=== PATIENT | male | born 1970 | race African-American/Black ===

== ENCOUNTER 2016-05-22 13:08 | Inpatient (IN) | payer MEDICAID, OTHER ==
[~2016-05-22] VITALS: Ht 180.3 cm; Wt 77.0 kg
[2016-05-22 13:39] LABS: BASOPHILS % (AUTO) 0.8 % (0.0-2.0); EOSINOPHILS % (AUTO) 3.7 % (1.0-6.0); HEMOGLOBIN 12.1 g/dL (13.5-17.5); LYMPHOCYTES # (AUTO) 1.3 K/uL (1.0-4.8); LYMPHOCYTES % (AUTO) 32.7 % (22.0-44.0); MEAN CORPUSCULAR HEMOGLOBIN 28.8 pg (26.0-34.0); MEAN CORPUSCULAR HGB CONC 32.6 G/dL (31.0-37.0); MEAN CORPUSCULAR VOLUME 89 fL (80-100); MONOCYTES # (AUTO) 0.4 K/uL (0.1-1.0); MONOCYTES % (AUTO) 8.6 % (2.0-9.0); NEUTROPHILS # (AUTO) 2.2 K/uL (1.8-7.7); NEUTROPHILS % (AUTO) 54.2 % (40.0-70.0); PLATELET COUNT (AUTO) 377 K/uL (150-450); RED BLOOD CELL COUNT(AUTO) 4.18 MIL/uL (4.50-5.90); RED CELL DISTRIBUTION WIDTH 14.5 % (11.5-14.5); WHITE BLOOD COUNT (AUTO) 4.1 K/uL (4.5-11.0)
[2016-05-22] MEDS ORDERED: RISP.5 PO (13:41)
[2016-05-22 13:42] LABS: ANION GAP 6 mmol/L (8-16); CALCIUM, TOTAL 8.8 mg/dL (8.8-10.5); CARBON DIOXIDE 30 mmol/L (22-29); CHLORIDE 107 mmol/L (98-107); CREATININE 0.79 mg/dL (0.60-1.30); GLOMERULAR FILTR. RATE CALC > 60 mL/min (>60); POTASSIUM 3.6 mmol/L (3.5-5.1); SODIUM SERUM 143 mmol/L (136-145); UREA NITROGEN, BLOOD 13 mg/dL (7-18)
[2016-05-22 13:48] LABS: ALANINE AMINOTRANSFERASE 20 U/L (12-78); ALBUMIN 3.2 g/dL (3.4-5.0); ASPARTATE AMINOTRANSFERASE 15 U/L (15-37); BILIRUBIN,TOTAL 0.2 mg/dL (0.1-1.0); TOTAL PROTEIN, SERUM 7.7 g/dL (6.4-8.2)
[2016-05-22 16:52] LABS: GLUCOSE,POINT OF CARE 101 MG/DL (70-110)
[2016-05-22 17:33] VITALS: BP 139/92
[2016-05-22] MEDS: HALOPERIDOL 5 MG TABLET PO PRN (18:03)
[2016-05-22] MEDS: LORazepam 2 MG TABLET PO PRN (18:03)
[2016-05-23] MEDS ORDERED: PETROLATUM,WHITE 71 GM JELLY TP PRN (07:30)
[2016-05-23] MEDS ORDERED: ALBUTEROL SULFATE HFA 90 MCG/PUFF 8 GM INHALER IH PRN (07:30)
[2016-05-23] MEDS ORDERED: BENZOCAINE/MENTHOL LOZENGE [8 LOZENGES/PACKET] MM PRN (07:30)
[2016-05-23] MEDS ORDERED: CloNIDine HCL 0.1 MG TABLET PO PRN (07:30)
[2016-05-23] MEDS ORDERED: BACITRACIN 28.4 GM OINTMENT TP PRN (07:30)
[2016-05-23] MEDS ORDERED: LOPERAMIDE HCL 2 MG CAPSULE PO PRN (07:30)
[2016-05-23] MEDS ORDERED: ONDANSETRON HCL 4 MG TABLET PO PRN (07:30)
[2016-05-23] MEDS ORDERED: MAG HYDROX/AL HYDROX/SIMETH ES 30 ML SUSPENSION UDCUP PO PRN (07:30)
[2016-05-23] MEDS ORDERED: MAGNESIUM HYDROXIDE SUSPENSION 30 ML UDCUP PO PRN (07:30)
[2016-05-23 08:00] VITALS: BP 128/78
[2016-05-23] MEDS: NICOTINE 21 MG/24 HOUR PATCH TD SCH ×2 (09:00→10:09)
[2016-05-23] MEDS: HALOPERIDOL 5 MG TABLET PO PRN (16:32)
[2016-05-23] MEDS: LORazepam 2 MG TABLET PO PRN (16:32)
[2016-05-23 16:59] VITALS: BP 133/86
[2016-05-24] MEDS: NICOTINE 21 MG/24 HOUR PATCH TD SCH (08:56)
[2016-05-24 09:54] VITALS: BP 129/74
[2016-05-24 16:00] VITALS: BP 133/76
[2016-05-24] MEDS ORDERED: LORazepam 2 MG/ML VIAL IM ONE (16:00)
[2016-05-24] MEDS ORDERED: DiphenhydrAMINE HCL 50 MG/ML VIAL IM ONE (16:00)
[2016-05-24] MEDS ORDERED: HALOPERIDOL LACTATE 5 MG/ML VIAL IM ONE (16:00)
[2016-05-25 08:13] VITALS: BP 116/90
[2016-05-25] MEDS: NICOTINE 21 MG/24 HOUR PATCH TD SCH (09:36)
[2016-05-25] MEDS: HALOPERIDOL 5 MG TABLET PO PRN (13:23)
[2016-05-25] MEDS: LORazepam 2 MG TABLET PO PRN (13:23)
[2016-05-25 16:00] VITALS: BP 127/70
[2016-05-25] MEDS: RisperiDONE 1 MG TABLET PO SCH (18:01)
[2016-05-26] MEDS: RisperiDONE 1 MG TABLET PO SCH ×2 (08:22→16:12)
[2016-05-26] MEDS: NICOTINE 21 MG/24 HOUR PATCH TD SCH (08:23)
[2016-05-26] MEDS: LORazepam 2 MG TABLET PO PRN (09:01)
[2016-05-26] MEDS: IBUPROFEN 600 MG TABLET PO PRN ×2 (09:06→21:02)
[2016-05-26 10:06] VITALS: BP 120/80
[2016-05-26 17:03] VITALS: BP 128/83
[2016-05-26 21:00] VITALS: BP 130/88
[2016-05-27] MEDS: ACETAMINOPHEN 325 MG TABLET PO PRN ×3 (01:29→13:41)
[2016-05-27 01:30] VITALS: BP 125/78
[2016-05-27] MEDS: IBUPROFEN 600 MG TABLET PO PRN ×3 (03:19→20:54)
[2016-05-27] MEDS: LORazepam 2 MG TABLET PO PRN ×2 (03:38→08:43)
[2016-05-27 08:03] VITALS: BP 143/89
[2016-05-27] MEDS: NICOTINE 21 MG/24 HOUR PATCH TD SCH (08:41)
[2016-05-27] MEDS: HALOPERIDOL 5 MG TABLET PO PRN (08:43)
[2016-05-27 08:44] VITALS: BP 143/89
[2016-05-27] MEDS: RisperiDONE 1 MG TABLET PO SCH ×2 (08:44→16:45)
[2016-05-27] MEDS ORDERED: BENZOCAINE 20% 11.9 GM GEL TP PRN (13:30)
[2016-05-27] MEDS ORDERED: BENZOCAINE 10% 7 GM GEL TP PRN (14:15)
[2016-05-27 16:00] VITALS: BP 139/85
[2016-05-27] MEDS: AMOXICILLIN TRIHYDRATE 500 MG CAPSULE PO SCH (16:45)
[2016-05-27] MEDS: BENZOCAINE 10% 7 GM GEL TP PRN (18:28)
[2016-05-27 20:51] VITALS: BP 133/79
[2016-05-28 04:20] VITALS: BP 131/73
[2016-05-28] MEDS: BENZOCAINE 10% 7 GM GEL TP PRN ×2 (04:24→12:32)
[2016-05-28] MEDS: IBUPROFEN 600 MG TABLET PO PRN ×2 (04:31→08:02)
[2016-05-28] MEDS: ACETAMINOPHEN 325 MG TABLET PO PRN (06:20)
[2016-05-28] MEDS: HALOPERIDOL 5 MG TABLET PO PRN (06:32)
[2016-05-28] MEDS: LORazepam 2 MG TABLET PO PRN (06:32)
[2016-05-28] MEDS: NICOTINE 21 MG/24 HOUR PATCH TD SCH (08:02)
[2016-05-28] MEDS: RisperiDONE 1 MG TABLET PO SCH ×2 (08:02→18:06)
[2016-05-28 08:04] VITALS: BP 122/87
[2016-05-28] MEDS: AMOXICILLIN TRIHYDRATE 500 MG CAPSULE PO SCH ×3 (08:05→18:06)
[2016-05-28 16:06] VITALS: BP 125/79
[2016-05-29 08:00] VITALS: BP 135/71
[2016-05-29] MEDS: AMOXICILLIN TRIHYDRATE 500 MG CAPSULE PO SCH ×3 (08:37→16:30)
[2016-05-29] MEDS: RisperiDONE 1 MG TABLET PO SCH ×2 (08:37→16:30)
[2016-05-29] MEDS: NICOTINE 21 MG/24 HOUR PATCH TD SCH (08:38)
[2016-05-29] MEDS: HALOPERIDOL 5 MG TABLET PO PRN (08:39)
[2016-05-29] MEDS: LORazepam 2 MG TABLET PO PRN (08:39)
[2016-05-29 18:49] VITALS: BP 129/82
[2016-05-30 08:07] VITALS: BP 133/86
[2016-05-30] MEDS: AMOXICILLIN TRIHYDRATE 500 MG CAPSULE PO SCH ×3 (08:25→16:50)
[2016-05-30] MEDS: RisperiDONE 1 MG TABLET PO SCH ×2 (08:25→16:51)
[2016-05-30] MEDS: NICOTINE 21 MG/24 HOUR PATCH TD SCH (08:26)
[2016-05-30 16:58] VITALS: BP 146/86
[2016-05-30] MEDS: BENZOCAINE 10% 7 GM GEL TP PRN (22:47)
[2016-05-31 00:15] VITALS: BP 131/81
[2016-05-31] MEDS: IBUPROFEN 600 MG TABLET PO PRN ×2 (01:10→10:18)
[2016-05-31] MEDS: ZOLPIDEM TARTRATE 10 MG TABLET PO PRN (02:31)
[2016-05-31] MEDS: LORazepam 2 MG TABLET PO PRN ×2 (02:31→16:12)
[2016-05-31 08:34] VITALS: BP 137/78
[2016-05-31] MEDS: RisperiDONE 1 MG TABLET PO SCH ×2 (08:43→16:47)
[2016-05-31] MEDS: AMOXICILLIN TRIHYDRATE 500 MG CAPSULE PO SCH ×3 (08:43→16:47)
[2016-05-31] MEDS: NICOTINE 21 MG/24 HOUR PATCH TD SCH (09:00)
[2016-05-31] MEDS ORDERED: LORazepam 2 MG/ML VIAL ONE (17:19)
[2016-05-31] MEDS ORDERED: HALOPERIDOL LACTATE 5 MG/ML VIAL ONE (17:19)
[2016-05-31] MEDS ORDERED: DiphenhydrAMINE HCL 50 MG/ML VIAL ONE (17:19)
[2016-05-31] MEDS ORDERED: LORazepam 2 MG/ML VIAL IM ONE (17:30)
[2016-05-31] MEDS ORDERED: HALOPERIDOL LACTATE 5 MG/ML VIAL IM ONE (17:30)
[2016-05-31] MEDS ORDERED: DiphenhydrAMINE HCL 50 MG/ML VIAL IM ONE (17:30)
[2016-05-31 18:05] VITALS: BP 141/95
[2016-06-01 02:00] VITALS: BP 130/72
[2016-06-01] MEDS: ZOLPIDEM TARTRATE 10 MG TABLET PO PRN ×2 (02:04→20:21)
[2016-06-01] MEDS: AMOXICILLIN TRIHYDRATE 500 MG CAPSULE PO SCH ×3 (08:00→16:31)
[2016-06-01] MEDS: RisperiDONE 1 MG TABLET PO SCH (08:01)
[2016-06-01 08:25] VITALS: BP 133/79
[2016-06-01] MEDS: NICOTINE 21 MG/24 HOUR PATCH TD SCH (09:00)
[2016-06-01 16:00] VITALS: BP 126/85
[2016-06-01] MEDS: RisperiDONE 3 MG TABLET PO SCH (16:31)
[2016-06-01] MEDS: LORazepam 2 MG TABLET PO PRN (16:32)
[2016-06-01] MEDS: HALOPERIDOL 5 MG TABLET PO PRN (19:31)
[2016-06-02] MEDS: LORazepam 2 MG TABLET PO PRN ×2 (01:30→15:05)
[2016-06-02 08:00] VITALS: BP 105/73
[2016-06-02] MEDS: RisperiDONE 3 MG TABLET PO SCH ×2 (08:57→16:12)
[2016-06-02] MEDS: AMOXICILLIN TRIHYDRATE 500 MG CAPSULE PO SCH ×3 (08:57→16:12)
[2016-06-02] MEDS: NICOTINE 21 MG/24 HOUR PATCH TD SCH (09:00)
[2016-06-02 16:48] VITALS: BP 110/72
[2016-06-02] MEDS: ZOLPIDEM TARTRATE 10 MG TABLET PO PRN (23:36)
[2016-06-03 08:00] VITALS: BP 95/66
[2016-06-03] MEDS: AMOXICILLIN TRIHYDRATE 500 MG CAPSULE PO SCH (08:10)
[2016-06-03] MEDS: RisperiDONE 3 MG TABLET PO SCH (08:10)
[2016-06-03] MEDS: NICOTINE 21 MG/24 HOUR PATCH TD SCH (09:00)
[2016-06-03] MEDS ORDERED: AMOX125T PO (09:11)
== END 2016-06-03 10:00 | disposition home or self-care (01) | DRG 750 ==
LOC: EMS 13:10 → 3EI 16:31 → 3EC 05-24 18:19
PROVIDERS: ADMIT Psychiatry & Neurology Psychiatry; ATTEND Psychiatry & Neurology Psychiatry
DX: F25.9 Schizoaffective disorder, unspecified (principal); J44.9 Chronic obstructive pulmonary disease, unspecified; F15.10 Other stimulant abuse, uncomplicated; F12.90 Cannabis use, unspecified, uncomplicated; F17.210 Nicotine dependence, cigarettes, uncomplicated; G47.00 Insomnia, unspecified; F41.9 Anxiety disorder, unspecified; F31.9 Bipolar disorder, unspecified; K59.00 Constipation, unspecified; F10.20 Alcohol dependence, uncomplicated; F19.10 Other psychoactive substance abuse, uncomplicated; Z79.899 Other long term (current) drug therapy; Z71.6 Tobacco abuse counseling
CPT/HCPCS: 82962; 99285; 99406; G0480; J1200; J1630; J2060; Q0162

== ENCOUNTER 2017-09-08 13:54 | Emergency (ER) | payer MEDICAID ==
[~2017-09-08] VITALS: Ht 180.3 cm; Wt 81.8 kg
[~2017-09-08 13:54] MED LIST: AMOX125T PO; RISP.5 PO
[2017-09-08 14:30] VITALS: BP 118/94
[2017-09-08] MEDS ORDERED: MUPIROCIN CALCIUM 2% 22 GM OINTMENT TP ONE (14:45)
== END 2017-09-08 17:11 | disposition left against medical advice (07) ==
LOC: EMS 13:57
DX: S90.821A Blister (nonthermal), right foot, initial encounter (principal); F17.210 Nicotine dependence, cigarettes, uncomplicated; F12.10 Cannabis abuse, uncomplicated; F15.10 Other stimulant abuse, uncomplicated; X58.XXXA Exposure to other specified factors, initial encounter; Y93.01 Activity, walking, marching and hiking; Y92.89 Other specified places as the place of occurrence of the external cause; Y99.8 Other external cause status
CPT/HCPCS: 99283; 99406

== ENCOUNTER 2017-10-27 17:39 | Inpatient (IN) | payer MEDICAID ==
[~2017-10-27] VITALS: Ht 180.3 cm; Wt 100.2 kg
[2017-10-27] MEDS ORDERED: OLAN7.5T2 PO (18:58)
[2017-10-27 21:45] LABS: BASOPHILS % (AUTO) 0.5 % (0.0-2.0); EOSINOPHILS % (AUTO) 1.8 % (1.0-6.0); HEMATOCRIT 42.9 % (41-53); HEMOGLOBIN 15.2 g/dL (13.5-17.5); LYMPHOCYTES # (AUTO) 2.1 K/uL (1.0-4.8); MEAN CORPUSCULAR HEMOGLOBIN 29.9 pg (26.0-34.0); MEAN CORPUSCULAR HGB CONC 35.4 G/dL (31.0-37.0); MEAN CORPUSCULAR VOLUME 85 fL (80-100); MONOCYTES # (AUTO) 0.4 K/uL (0.1-1.0); NEUTROPHILS # (AUTO) 2.6 K/uL (1.8-7.7); NEUTROPHILS % (AUTO) 49.7 % (40.0-70.0); PLATELET COUNT (AUTO) 246 K/uL (150-450); RED BLOOD CELL COUNT(AUTO) 5.08 MIL/uL (4.50-5.90); RED CELL DISTRIBUTION WIDTH 14.5 % (11.5-14.5)
[2017-10-27] MEDS ORDERED: LORazepam 2 MG TABLET PO ONE (21:45)
[2017-10-27 21:49] LABS: ANION GAP 11 mmol/L (8-16); CALCIUM, TOTAL 9.5 mg/dL (8.8-10.5); CARBON DIOXIDE 25 mmol/L (22-29); CHLORIDE 102 mmol/L (98-107); CREATININE 0.67 mg/dL (0.60-1.30); GLOMERULAR FILTR. RATE CALC > 60 mL/min (>60); GLUCOSE,RANDOM 106 mg/dL (70-110); POTASSIUM 3.9 mmol/L (3.5-5.1); SODIUM SERUM 138 mmol/L (136-145); UREA NITROGEN, BLOOD 14 mg/dL (7-18)
[2017-10-27 21:56] LABS: ALANINE AMINOTRANSFERASE 32 U/L (12-78); ALKALINE PHOSPHATASE 83 U/L (46-116); ASPARTATE AMINOTRANSFERASE 16 U/L (15-37); BILIRUBIN,TOTAL 0.4 mg/dL (0.1-1.0); TOTAL PROTEIN, SERUM 8.4 g/dL (6.4-8.2)
[2017-10-27 22:38] LABS: AMPHET/METH SCREEN,URINE NEGATIVE (NEGATIVE); BARBITURATE SCREEN, URINE NEGATIVE (NEGATIVE); BENZODIAZEPINES SCREEN,URINE NEGATIVE (NEGATIVE); CANNABINOID SCREEN,URINE NEGATIVE (NEGATIVE); COCAINE SCREEN,URINE NEGATIVE (NEGATIVE); METHADONE SCREEN, URINE NEGATIVE (NEGATIVE); OPIATE SCREEN,URINE NEGATIVE (NEGATIVE); PHENCYCLIDINE SCREEN,URINE NEGATIVE (NEGATIVE)
[2017-10-27] MEDS ORDERED: LORazepam 2 MG TABLET PO PRN (22:45)
[2017-10-27] MEDS ORDERED: HALOPERIDOL 5 MG TABLET PO PRN (22:45)
[2017-10-28 01:32] VITALS: BP 136/89
[2017-10-28] MEDS ORDERED: PNEUMOCOCCAL VACCINE POLYVALENT 0.5 ML VIAL [PPSV23] IM ONE (05:30)
[2017-10-28 08:11] VITALS: BP 104/59
[2017-10-28 16:00] VITALS: BP 122/83
[2017-10-28] MEDS: OLANZapine 7.5 MG TABLET PO SCH (20:44)
[2017-10-28] MEDS ORDERED: LOPERAMIDE HCL 2 MG CAPSULE PO PRN (21:45)
[2017-10-28] MEDS ORDERED: IBUPROFEN 400 MG TABLET PO PRN (21:45)
[2017-10-28] MEDS ORDERED: ONDANSETRON HCL 4 MG TABLET PO PRN (21:45)
[2017-10-28] MEDS ORDERED: CloNIDine HCL 0.1 MG TABLET PO PRN (21:45)
[2017-10-28] MEDS ORDERED: ALBUTEROL SULFATE HFA 90 MCG/PUFF 8 GM INHALER IH PRN (21:45)
[2017-10-28] MEDS ORDERED: DOCUSATE SODIUM 100 MG CAPSULE PO PRN (21:45)
[2017-10-28] MEDS ORDERED: MAG HYDROX/AL HYDROX/SIMETH ES 30 ML SUSPENSION UDCUP PO PRN (21:45)
[2017-10-28] MEDS ORDERED: PETROLATUM,WHITE 71 GM JELLY TP PRN (21:45)
[2017-10-28] MEDS ORDERED: MAGNESIUM HYDROXIDE SUSPENSION 30 ML UDCUP PO PRN (21:45)
[2017-10-28] MEDS ORDERED: ACETAMINOPHEN 325 MG TABLET PO PRN (21:45)
[2017-10-29 06:19] VITALS: BP 109/66
[2017-10-29 07:32] VITALS: BP 126/72
[2017-10-29 08:42] LABS: HEMOGLOBIN A1C 5.4 % (4.5-6.2)
[2017-10-29] MEDS ORDERED: NICOTINE 14 MG/24 HOUR PATCH TD SCH (09:00)
[2017-10-29 09:03] LABS: THYROID STIMULATING HORMONE 3.05 uIU/mL (0.36-3.74)
[2017-10-29 16:14] VITALS: BP 114/61
[2017-10-29] MEDS: OLANZapine 7.5 MG TABLET PO SCH (20:00)
[2017-10-30 06:24] VITALS: BP 140/85
[2017-10-30 08:27] VITALS: BP 132/74
[2017-10-30 16:08] VITALS: BP 126/76
[2017-10-30] MEDS: LITHIUM CARBONATE 300 MG CAPSULE PO SCH (17:15)
[2017-10-30] MEDS: OLANZapine 7.5 MG TABLET PO SCH (20:38)
[2017-10-31 06:29] VITALS: BP 112/70
[2017-10-31 08:01] VITALS: BP 128/77
[2017-10-31] MEDS: LITHIUM CARBONATE 300 MG CAPSULE PO SCH ×2 (09:01→16:34)
[2017-10-31 16:03] VITALS: BP 139/89
[2017-10-31] MEDS: OLANZapine 7.5 MG TABLET PO SCH (20:56)
[2017-10-31] MEDS: ZOLPIDEM TARTRATE 10 MG TABLET PO PRN (22:38)
[2017-11-01 01:25] VITALS: BP 133/85
[2017-11-01 08:08] VITALS: BP 126/78
[2017-11-01] MEDS: LITHIUM CARBONATE 300 MG CAPSULE PO SCH ×2 (08:36→16:20)
[2017-11-01 16:00] VITALS: BP 128/85
[2017-11-01] MEDS: OLANZapine 7.5 MG TABLET PO SCH (20:26)
[2017-11-02 06:44] VITALS: BP 118/74
[2017-11-02 08:17] VITALS: BP 117/63
[2017-11-02] MEDS: LITHIUM CARBONATE 300 MG CAPSULE PO SCH ×2 (08:28→16:08)
[2017-11-02 16:00] VITALS: BP 128/73
[2017-11-02] MEDS: OLANZapine 7.5 MG TABLET PO SCH (20:41)
[2017-11-02] MEDS ORDERED: LITH300C3 PO (21:04)
[2017-11-02] MEDS ORDERED: OLAN7.5T2 PO (21:04)
[2017-11-02] MEDS: ZOLPIDEM TARTRATE 10 MG TABLET PO PRN (22:18)
[2017-11-03 04:35] VITALS: BP 120/75
[2017-11-03 08:02] VITALS: BP 117/62
[2017-11-03] MEDS: LITHIUM CARBONATE 300 MG CAPSULE PO SCH (08:33)
== END 2017-11-03 11:39 | disposition home or self-care (01) | DRG 750 ==
LOC: EMS 17:39 → B3A 23:00
PROVIDERS: ADMIT Psychiatry & Neurology Psychiatry; ATTEND Psychiatry & Neurology Psychiatry
DX: F25.9 Schizoaffective disorder, unspecified (principal); R45.851 Suicidal ideations; Z59.0 Homelessness; J44.9 Chronic obstructive pulmonary disease, unspecified; F41.9 Anxiety disorder, unspecified; F17.210 Nicotine dependence, cigarettes, uncomplicated; F12.90 Cannabis use, unspecified, uncomplicated; F32.9 Major depressive disorder, single episode, unspecified; Z28.21 Immunization not carried out because of patient refusal
CPT/HCPCS: 83036; 84443; 99285; G0480